=== PATIENT | male | born 1995 | race African-American/Black ===

== ENCOUNTER 2022-03-05 08:00 | Outpatient (CLI) | payer OTHER ==
--- NOTE | 2022-03-05 12:13 | XRAY Report ---
PROCEDURE: Knee 3 View LT INDICATIONS: SPRAIN OF L KNEE TECHNIQUE: 3 views of the left knee(s) were acquired. COMPARISON: None. FINDINGS: Bones: No fractures or dislocations. No suspicious bony lesions. Soft tissues: No joint effusion. No suspicious soft tissue calcifications. IMPRESSION: No acute fracture. No osseous lesion. If symptoms and/or clinical suspicion for patholog y continue, further assessment with repeat plain films, or advanced imaging (e.g., CT, MRI, or bone s can) is recommended for further assessment. Reviewed by: Rafael Rivera MD on 03/05/2022 11:12 AM PHIL Approved by: Rafael Rivera MD on 03/05/2022 11:12 AM PHIL Station ID: [id number]
== END 2022-03-05 23:59 | disposition home or self-care (01) ==
LOC: DI.N 08:00
PROVIDERS: ATTEND Physician Assistant Medical
DX: S83.92XA Sprain of unspecified site of left knee, initial encounter (principal)